=== PATIENT | male | born 1995 | race Caucasian/White ===

== ENCOUNTER 2020-06-05 00:23 | Emergency (ER) | payer SELFPAY ==
[~2020-06-05] VITALS: Ht 172.7 cm; Wt 72.6 kg
[2020-06-05 00:25] VITALS: Ht 172.7 cm; Wt 72.6 kg
[2020-06-05 01:18] VITALS: BP 127/92
== END 2020-06-05 01:18 | disposition home or self-care (01) ==
LOC: ED 00:23
DX: U07.1 COVID-19 (principal)
CPT/HCPCS: U0003-CS